=== PATIENT | male | born 1970 | race Caucasian/White ===

== ENCOUNTER 2018-12-12 07:30 | Emergency (ER) | payer OTHER ==
[~2018-12-12] VITALS: Ht 175.3 cm; Wt 60.9 kg
[2018-12-12 07:32] VITALS: BP 153/122
--- NOTE | 2018-12-12 07:45 | NUR ---
PATIENT AMBULATED TO BED 4 AT THIS TIME.
--- NOTE | 2018-12-12 07:49 | NUR ---
C/O N/V, EPIGASTRIC PAIN X 4DAYS. LAST BM 12/10/18 HX: PANCREATITIS . SKIN IS PINK/WARM/DRY; AAOX4 WITH EVEN AND STEADY GAIT; LUNGS CLEAR BL; HR EVEN AND REGULAR; PT DENIES ANY FEVER, CP, SOB, OR COUGH AT THIS TIME; PATIENT STATES PAIN OF 5/10 AT THIS TIME; VSS; PATIENT POSITIONED FOR COMFORT; HOB ELEVATED; BEDRAILS UP X2; BED DOWN. ER MD MADE AWARE OF PT STATUS.
[2018-12-12] MEDS ORDERED: NACL 0.9% 500 ML IV ONE (08:07)
[2018-12-12] MEDS ORDERED: ONDANSETRON 4 MG/2 ML VIAL IVP ONE (08:10)
[2018-12-12] MEDS ORDERED: KETOROLAC 30 MG/ML VIAL IVP ONE (08:10)
[2018-12-12] MEDS ORDERED: KETOROLAC 15 MG/ML VIAL ONE (08:59)
[2018-12-12 09:05] LABS: BASOPHILS % (AUTO) 0.3 % (0.0-2.0); EOSINOPHILS # (AUTO) 0.1 K/uL (0-0.4); EOSINOPHILS % (AUTO) 1.6 % (0.0-4.0); HEMATOCRIT 44.3 % (36-52); HEMOGLOBIN 15.2 g/dL (12.0-18.0); LYMPHOCYTES # (AUTO) 0.7 K/uL (2.0-11.5); MEAN CORPUSCULAR HEMOGLOBIN 30 pg (27-31); MEAN CORPUSCULAR HGB CONC 34 g/dL (33-37); MEAN CORPUSCULAR VOLUME 88.6 fL (80-94); MONOCYTES # (AUTO) 0.6 K/uL (0.8-1.0); MONOCYTES % (AUTO) 7.7 % (1.7-9.3); NEUTROPHILS % (AUTO) 80.4 % (42.2-75.2); PLATELET COUNT (AUTO) 255 K/uL (140-450); RED CELL DISTRIBUTION WIDTH 12.9 % (11.6-13.7); WHITE BLOOD COUNT (AUTO) 7.4 K/uL (4.8-10.8)
[2018-12-12 09:23] LABS: ANION GAP 17.4 (8-16); CARBON DIOXIDE 22.7 mmol/L (21-32); CREATININE 0.9 mg/dL (0.7-1.3); POTASSIUM 4.1 mmol/L (3.5-5.1)
--- NOTE | 2018-12-12 09:31 | NUR ---
PT RESTING IN BED WITHOUT ANY DISCOMFORT. PT STATED PAIN IS GONE.
--- NOTE | 2018-12-12 10:45 | NUR ---
Dr. Quionnes re-evaluating patient at bedside.
--- NOTE | 2018-12-12 10:47 | NUR ---
DR. CEJA CHANGED IVF RATE FROM 100 C/HR TO WIDE OPEN. CHARGE NURSE MADE AWARE.
[2018-12-12 11:27] VITALS: BP 118/69
--- NOTE | 2018-12-12 11:27 | NUR ---
Patient discharged with v/s stable. Written and verbal after care instructions given and explained. Patient alert, oriented and verbalized understanding of instructions. Ambulatory with steady gait. All questions addressed prior to discharge. ID band removed. Patient advised to follow up with PMD. Rx of TRAMADOL AND ZOFRAN given. Patient educated on indication of medication including possible reaction and side effects. Opportunity to ask questions provided and answered.
== END 2018-12-12 11:20 | disposition home or self-care (01) ==
LOC: MED 07:30
DX: K85.90 Acute pancreatitis without necrosis or infection, unspecified (principal)
CPT/HCPCS: 36415; 74022; 80053; 83690; 85025; 96361; 96374; 96375; 99284; J1885; J2405; J7030